=== PATIENT | female | born 1995 | race American Indian/Alaskan Native ===

== ENCOUNTER 2016-08-22 13:21 | Emergency (ER) | payer BC ==
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
[2016-08-22 20:22] VITALS: BP 123/72
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
== END 2016-08-22 14:10 | disposition home or self-care (01) ==
LOC: LB.ED 13:21
DX: S69.91XA Unspecified injury of right wrist, hand and finger(s), initial encounter (principal); F17.210 Nicotine dependence, cigarettes, uncomplicated; Z88.8 Allergy status to other drugs, medicaments and biological substances; W22.8XXA Striking against or struck by other objects, initial encounter
CPT/HCPCS: 73130-RT; 81025; 99283

== ENCOUNTER 2019-10-18 04:30 | Emergency (ER) | payer BC ==
[2019-10-18] MEDS ORDERED: hydrOXYzine HCl 25 MG Tab PO ONE (05:18)
[2019-10-18] MEDS ORDERED: Acetaminophen/Codeine 300-30 MG Tab PO ONE (05:19)
--- NOTE | 2019-10-18 05:21 | EDM.PDOC ---
ED HPI GENERAL MEDICAL PROBLEM - General Chief Complaint: General Stated Complaint: JAW PAIN Time Seen by Provider: 10/18/19 05:14 Source of Information: Reports: Patient History Limitations: Reports: No Limitations - History of Present Illness Onset: Sudden Duration: Hour(s):, Waxing/Waning Location: Reports: Face, Other Quality: Reports: Ache, Throbbing Severity: Moderate Improves with: Reports: None Worsens with: Reports: None Associated Symptoms: Reports: Shortness of Breath Treatments GREY WASHER: Reports: NSAIDS - Related Data Allergies Allergy/AdvReac Type Severity Reaction Status Date / Time omeprazole Allergy Anaphylactic Verified 10/06/17 19:11 Shock lubraderm lotion Allergy Rash Uncoded 08/22/16 15:58 Past Medical History - Past Health History Medical/Surgical History: Denies Medical/Surgical History HEENT History: Reports: None, Other (See Below) Other HEENT History: Dental pain, cavities Cardiovascular History: Reports: None Respiratory History: Reports: None Gastrointestinal History: Reports: Gastritis Genitourinary History: Reports: None LMP (Approximate): 1 Week 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 Musculoskeletal History: Reports: None Neurological History: Reports: None Psychiatric History: Reports: Anxiety, Depression, Mood Swings, Suicidal Ideation Endocrine/Metabolic History: Reports: None Hematologic History: Reports: None Dermatologic History: Reports: None - Infectious Disease History Infectious Disease History: Reports: Chicken Pox, Influenza - Past Surgical History Other HEENT Surgeries/Procedures: appendectomy wisdom teeth surgically removed Cardiovascular Surgical History: Reports: None GI Surgical History: Reports: Appendectomy Social & Family History - Family History Family Medical History: Noncontributory - Caffeine Use Caffeine Use: Reports: Coffee, Energy Drinks, Soda ED ROS GENERAL - Review of Systems Review Of Systems: See Below Constitutional: Reports: Weakness. Denies: Fever HEENT: Reports: Dental Pain, Throat Pain Respiratory: Reports: No Symptoms Cardiovascular: Reports: Lightheadedness GI/Abdominal: Reports: No Symptoms : Denies: Dysuria, Flank Pain Musculoskeletal: Reports: Muscle Pain Skin: Reports: No Symptoms Neurological: Reports: No Symptoms Psychiatric: Reports: Anxiety, Depression ED EXAM, GENERAL - Physical Exam Exam: Not Obtained Course - Orders/Labs/Meds Meds: Medications Discontinued Medications Generic Name Dose Route Start Last Admin Trade Name Freq PRN Reason Stop Dose Admin Acetaminophen/Codeine Phosphate 1 tab 08/06/20 05:19 Tylenol With Codeine No.3 300mg/30mg PO 10/18/19 05:20 ONETIME ONE Hydroxyzine HCl 25 mg 10/18/19 05:18 Atarax PO 10/18/19 05:19 ONETIME ONE Departure - Departure Time of Disposition: 06:25 Disposition: Against Medical Advice 07 Clinical Impression: Pain - Discharge Information *PRESCRIPTION DRUG MONITORING PROGRAM REVIEWED*: Not Applicable *COPY OF PRESCRIPTION DRUG MONITORING REPORT IN PATIENT CARLY: Not Applicable Referrals: PCP,None [Primary Care Provider] - Forms: ED Department Discharge
== END 2019-10-18 05:25 | disposition left against medical advice (07) ==
LOC: LB.ED 04:30
DX: R51 Headache (principal); Z88.8 Allergy status to other drugs, medicaments and biological substances; Z91.048 Other nonmedicinal substance allergy status
CPT/HCPCS: 99282